=== PATIENT | female | born 1955 | race Caucasian/White ===

== ENCOUNTER 2018-09-21 05:55 | Day surgery (SDC) | payer BC ==
[2018-09-21] MEDS ORDERED: ONDANSETRON HCL IV 4 MG/2 ML VIAL IVP ONE (05:56)
[2018-09-21] MEDS ORDERED: LIDOCAINE 2% MDV (20MG/ML) 20ML VIAL IV ONE (05:56)
[2018-09-21] MEDS ORDERED: FENTANYL PF 100MCG/2ML VIAL IV ONE (05:56)
[2018-09-21] MEDS ORDERED: METOCLOPRAMIDE 10 MG TABLET PO ONE (05:56)
[2018-09-21] MEDS ORDERED: DEXAMETHASONE 4 MG/ML 1ML VIAL IVP ONE ×2 (05:56)
[2018-09-21] MEDS ORDERED: BUPIVACAINE LIPOSOME/PF 133MG/10ML VIAL IV ONE (05:56)
[2018-09-21] MEDS ORDERED: FAMOTIDINE 20MG TABLET PO ONE (05:56)
[2018-09-21] MEDS ORDERED: BUPIVACAINE 0.5% (5MG/ML) PF 30ML VIAL IVP ONE (05:56)
[2018-09-21] MEDS ORDERED: MECLIZINE 25 MG TABLET PO ONE (05:56)
[2018-09-21] MEDS ORDERED: MIDAZOLAM HCL 2MG/2ML VIAL IV ONE (05:56)
[2018-09-21] MEDS ORDERED: MORPHINE SULFATE PF 10MG/10ML VIAL IV ONE (05:56)
[2018-09-21] MEDS ORDERED: BUPIVACAINE 0.5% W/EPI MPF 30 ML VIAL IVP ONE (05:56)
[2018-09-21] MEDS ORDERED: DESFLURANE 240 ML BTL INH ONE (05:56)
[2018-09-21] MEDS ORDERED: PROPOFOL 10 MG/ML VIAL IV ONE (05:56)
[2018-09-21] MEDS ORDERED: CEFAZOLIN 2 Gram 2 GM/50 ML BAG IVPB ONE (06:00)
[2018-09-21] MEDS ORDERED: ACETAMINOPHEN 1,000 MG/100 ML BTL IV ONE (06:00)
[2018-09-21 06:11] LABS: BASO % 0.8 % (0-6); EOS % 3.9 % (0-6); HEMOGLOBIN 13.4 gm/dl (11.6-16.0); LYMPH % 30.7 % (16-45); MEAN CELL VOLUME 94.5 fl (81-97); MEAN CORPUSCULAR HEMOGLOBIN 30.9 pg (27-33); MEAN CORPUSCULAR HGB CONC 32.7 g/dl (32-36); MEAN PLATELET VOLUME 9.2 fl (7.4-10.4); MONO % 8.6 % (0-9); PLATELET COUNT 298 K/uL (130-400); RED BLOOD COUNT 4.34 M/uL (3.80-5.40); RED CELL DISTRIBUTION WIDTH 12.9 % (11.5-14.5); WHITE BLOOD COUNT W/O DIFF 7.6 K/uL (4.2-12.2)
[2018-09-21 06:24] LABS: BLOOD UREA NITROGEN 13 mg/dL (8-23); CREATININE 0.7 mg/dL (0.5-0.9); EST GLOMERULAR FILTRATION RATE > 60 mL/min; GLUCOSE,RANDOM 122 mg/dL (74-109)
--- NOTE | 2018-09-23 08:10 | Operative Note ---
DATE OF SURGERY: 09/21/2018 PREOPERATIVE DIAGNOSIS: Tear of the rotator cuff on the right. POSTOPERATIVE DIAGNOSES: 1. 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 2. Complex glenohumeral labral tear anteriorly. 3. Severe external impingement right shoulder. 4. 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 OPERATION: 1. Repair of a chronically torn rotator cuff tear. 2. Right shoulder arthroscopy with intraarticular debridement. 3. Right shoulder open acromioplasty, CA ligament resection, and subacromial bursectomy. 4. Right shoulder distal clavicle resection. Staff Surgeon: Melecio Tadeo MD Anesthesia: General. Preparation: Chloraprep. Individual Considerations: None. PROCEDURE: The patient was taken to the operating room, placed supine on the operating room table. She had a successful induction with general anesthetic. She was then placed in a semi-seated beach chair position. Her right arm and shoulder were prepped and draped in the usual fashion. The patient had an anterior approach ot the subacromial space and distal clavicle. Prior to this, an arthroscopy portal was identified, and the skin was infiltrated with 0.5% Marcaine with epinephrine prior. An 18-gauge spinal needle was easily placed in the joint, and the joint was inflated with normal saline. A stab wound was made, and a blunt-tipped trocar for the scope was placed in the joint. The joint was inflated with normal saline. An anterior accessory portal was then made just inferior to the intact long head of the biceps tendon in a retrograde fashion with a Wissinger aliya, and the joint was irrigated out. The patient had what appeared to be fraying of the anterior labrum. The glenohumeral joint was normal. Long head was atrophic but intact. Subscap tendon was normal. No loose bodies were seen in the inferior pouch. She had what appeared to be a longitudinal tear of the rotator cuff at the supraspinatus. A shaver was introduced. The labral tear was debrided, and the arthroscope instruments were removed after irrigation. The patient then again had an anterior approach to the subacromial space and distal clavicle. Skin was again infiltrated with 0.5% Marcaine with epinephrine prior. Sharp dissection carried down through skin and subcutaneous tissues. Small veins were coagulated with a Bovie. An anterior deltoid interval was developed. Care was taken not to split the deltoid more than about 4 cm distal to the anterior tip of the acromion to prevent injury to the axillary nerve. Once in the subacromial space, there was a large nieves of fluid consistent with a tear. She had downsloping acromial spurs and large spurs at the acromioclavicular joint. The deltoid was then taken subperiosteally off the anterior aspect of the acromion, over the top of the intact CA ligament, and off the anterior aspect of a highly degenerated distal clavicle. The CA ligament was resected with a Bovie. Distal clavicle was resected with an oscillating saw taking about 6-7 mm. She had large anterior spur downsloping the acromion, so an anterior acromioplasty was performed taking about 6-7 mm tapering towards posteromedially to include the spurs at the AC joint. The undersurface was then smoothed with a rasp. A very thick bursa was debrided out. I now had a good look at the rotator cuff. The rotator cuff was basically torn in layers. The under layer was stretched out but intact. There was an overlayer basically involving pretty much all the supraspinatus tendon. I was able to draw together a T and after freshening the ends, I then made a trough in the tuberosity about 1.5 to 2 cm and brought those superficial layers back down into the trough. This was done with #1 Ethibond sutures buried in retention fashion and then sutured to the bony tuberosity after making a trough with a bur and then making holes distally and bringing it down, tying it down. This left a longitudinal rent which was closed with buried knot 0 Vicryl sutures. I put the shoulder through full range of motion to ensure no further impingement. After irrigation, deltoid and reattached to the remaining acromion with multiple interrupted #2 Vicryl going directly through the bony acromion. The periosteal cup of the distal clavicle was closed with interrupted and running #1 Vicryl. Anterior deltoid interval was closed with running #1 Vicryl. Subcu was closed with 2-0 plus Vicryl. Skin was closed with reginaldo. Then 15 mL of 0.5% Marcaine with epinephrine along with 10 mg of morphine was injected into the subacromial space. A sterile bulky compressive dressing and sling were applied. The patient tolerated the procedure well. Needle and sponge counts were correct. Estimated blood loss was minimal. She was taken back to recovery in good condition. There were no complications. DEMAR
== END 2018-09-21 10:40 | disposition home or self-care (01) ==
LOC: SUR 05:55
PROVIDERS: ATTEND Orthopaedic Surgery
DX: M75.101 Unspecified rotator cuff tear or rupture of right shoulder, not specified as traumatic (principal); S43.431A Superior glenoid labrum lesion of right shoulder, initial encounter; M75.41 Impingement syndrome of right shoulder; M19.011 Primary osteoarthritis, right shoulder; I10 Essential (primary) hypertension; E78.00 Pure hypercholesterolemia, unspecified
CPT/HCPCS: 29822; 23412; 23120; 23130; 01610; 64493; 85025; 80048; J2405; J3010; J0690; C9290; 76942